=== PATIENT | female | born 2005 | race Two or more races ===

== ENCOUNTER 2024-07-18 18:00 | Emergency (ER) | payer MEDICAID, SELFPAY ==
[2024-07-18 18:07] VITALS: BP 133/75; PULSE 68; RESP 18; TEMP 36.6; O2SAT 98; BMI 28.3
--- NOTE | 2024-07-18 18:11 | ED.UPPEXIN ---
HPI - Extremity Injury (Upper) General Time Seen by Provider: 18:11 Date Seen: 07/18/24 Chief Complaint: Extremity Pain/Injury, Upper Stated Complaint: R middle finger injury Time Seen by Provider: 07/18/24 18:09 Source: patient Mode of arrival: ambulatory Limitations: no limitations Related Data Home Medications ?Medication ?Instructions ?Recorded ?Confirmed No Known Home Medications 07/18/24 07/18/24 Allergies Allergy/AdvReac Type Severity Reaction Status Date / Time liquid tylenol Allergy Intermediate Swelling Uncoded 07/18/24 18:05 of Lip/Tongue/Throat PFSH PFSH Social History Smoking Status: Never smoker Do you use any of these nicotine containing products: None How often do you have a drink containing alcohol: never How often do you have six or more drinks on one occasion: Never AUDIT-C Alcohol total score: 0 Non-prescribed substance use: denies use Exam Const: Vital Signs, click to edit/add: Vital Signs - 24 hr 07/18/24 18:07 Temperature 98 F Pulse Rate [Pulse Oximeter] 68 Respiratory Rate 18 Blood Pressure [Ri ght Upper Arm] 133/75 Pulse Oximetry 98 Oxygen Delivery Me thod Room Air Course Vital Signs Vital signs: Initial Vital Signs Temperature 98 F 07/18/24 18:07 Temperature Source Temporal Artery Scan 07/18/24 18:07 Pulse Rate 68 07/18/24 18:07 Respiratory Rate 18 07/18/24 18:07 Blood Pressure 133/75 07/18/24 18:07 Blood Pressure Mean 94 07/18/24 18:07 Pulse Oximetry 98 07/18/24 18:07 Oxygen Delivery Method Room Air 07/18/24 18:07 Vital Signs Temperature 98 F 07/18/24 18:07 Pulse Rate 68 07/18/24 18:07 Respiratory Rate 18 07/18/24 18:07 Blood Pressure 133/75 07/18/24 18:07 Pulse Oximetry 98 07/18/24 18:07 Oxygen Delivery Method Room Air 07/18/24 18:07 Temperature 98 F 07/18/24 18:07 Pulse Rate 68 07/18/24 18:07 Respiratory Rate 18 07/18/24 18:07 Blood Pressure 133/75 07/18/24 18:07 Pulse Oximetry 98 07/18/24 18:07 Oxygen Delivery Method Room Air 07/18/24 18:07 Discharge Plan Discharge Prescriptions: No Action No Known Home Medications
--- NOTE | 2024-07-18 18:12 | CRLHL7_ITS ---
For Patients: As a result of the Cures Act, medical imaging exams and procedure reports are released immediately into your electronic medical record. You may view this report before your referring provider. If you have questions, please contact your health care provider. INDICATION: Injury COMPARISON: None. TECHNIQUE: Three radiographic view(s) of the right 3rd finger. FINDINGS: No evident acute displaced fracture. No substantial degenerative change. IMPRESSION: Normal radiographic examination of the right 3rd finger. Dictated by Juaquin Romeo MD @ 07/18/2024 6:33:38 PM (Electronically Signed)
--- OUTSIDE RECORDS SUMMARY | 2024-07-18 18:35 | XMS_ITS | Clinical Summary ---
Author Organization [facility] Address [address] [place], [place] Care Team Providers Care Type Rolling Machine Operator Name Role Phone Unavailable Primary Care Provider Unavailabl e Allergies No known active allergies Medications No known medications Active Problems Problem Noted Date Diagnosed Date Retropharyngeal abscess 08/24/2022 Social History Tobacco Use Types Packs/Day Years Used Date Smoking Tobacco: Never Tobacco Cessation:Counseling Given: Not Answered Alcohol Use Standard Drinks/Week Comments Never 0 (1 standard drink = 0.6 oz pur e alcohol) Domestic Partner Violence Answer Date R ecorded Domestic Abuse Screening - Safe in home 04/24/2023 Domestic Abuse Screening - Safe in relationship Not on file 04/24/2023 Alcohol Use- Patient History Answer Franky e Recorded Smoking Tobacco Use Never Assessed 12/24/2023 Smokeless Tobacco Use Unknown 12/24/2023 Passive Exposure Not on file 12/24/2023 Comments Unknown Sex and Gender Information Value Date Recorded Sex Assigned at Not on file Legal Sex Female 11:26 PM EDT Gender Identity Not on file Sexual Orientation Not on file Last Filed Vital Signs Vital Sign Reading Time Taken Comments Blood Pressure 112/61 08/25/2022 8:00 AM EDT Pulse 62 08/25/2022 8:00 AM EDT Temperature 36.2 C (97.1 F) 08/25/2022 8:00 AM EDT Respiratory Rate 18 08/25/2022 8:00 AM EDT Oxygen Saturation 99% 08/25/2022 8:00 AM EDT Inhaled Oxygen Concentration - - Weight 71.3 kg (157 lb 3 oz) 08/23/2022 11:43 PM EDT Height - - Body Mass Index - - Plan of Treatment Health Maintenance Due Date Last Done Comments HIV Screening 2004 Hepatitis C Screening 2004 Annual Physical 2006 Influenza Vaccine 11/19/2023 01/02/2022, , 12/14/2019, Additional history exists Depression Screening Yearly 04/20/2024 DTAP,Tdap and Td Vaccines (7 - Td or Tdap) 11/22/2024 11/22/2014, 09/27/2008, 12/04/2005, Additional history exists HIB Vaccines Completed 09/08/2005, 12/20, 2004 Pneumococcal Vaccine: Peds (0-5Y) & At-Risk Patients (6- 49Y) Aged Out 09/08/2005, 03/10/2005, 01/07/2005, Additional history exists No longer eligible based on patient's age to complete this topic HPV Vaccines Completed 12/10/2015, 08/2014, 11/22/2014, Additional history exists Insurance Benefit Mobile [place] [id number] Advance Directives For more information, please contact: [phone] * Full Code (Latest Code Status on File) Date Activated Date Inactivated Comments 08/24/2022 10:05 AM 08/25/2022 11:37 AM
--- OUTSIDE RECORDS SUMMARY | 2024-07-18 18:35 | XMS_ITS | Clinical Summary ---
Author Organization [facility] Kimmy kamara Address [address] [place] [address] Phone Care Team Providers Care Voltage Regulator Assembler Name Role Phone Santhosh Eason MD Primary Care Provider [phone] Allergies No known active allergies Medications No known medications Active Problems Problem Noted Date Diagnosed Date Discoid lateral meniscus of right knee 8 Overview (04/24/2017): Added automatically from request for surgery [id number] Social History Tobacco Use Types Packs/Day Years Used Date Smoking Tobacco: Never Smokeless Tobacco: Never Comments No Sex and Gender Information Value Date Recorded Sex Assigned at Not on file Legal Sex Female 3:44 AM EST Gender Identity Not on file Sexual Orientation Not on file Last Filed Vital Signs Vital Sign Reading Time Taken Comments Blood Pressure 109/57 10/01/2020 12:03 PM EDT Pulse 65 10/01/2020 12:03 PM EDT Temperature 36.8 C (98.3 F) 10/01/2020 12:03 PM EDT Respiratory Rate 14 05/01/2017 6:28 PM EST Oxygen Saturation - - Inhaled Oxygen Concentration - - Weight 68 kg (149 lb 14.6 oz) 12:03 PM EDT Height 155.7 cm (5' 1.3) 10/01/2020 12 :03 PM EDT Body Mass Index 28.05 10/01/2020 12:03 PM EDT Body Mass Index Percentile 93.84% 10/01 12:03 PM EDT Growth Chart: CDC (Girls, 2- 20 Years) Plan of Treatment Health Maintenance Due Date Last Done Comments Lipid Panel Screening 2021 COVID-19 VACCINE (4 - 2023-2 5 season) 2023 06/13/2021, 09/21/2020, 08/30/2020 INFLUENZA VACCINE (SPECIALTY CARE) (#1) 2023 01/02/2022, 01/15/2021, 12/14/2019, Additional history exists DTAP/TDAP/TD VACCINES (SPECI ALTY CARE) (7 - Td or Tdap) 11/22/2024 11/22/2014, 09/27/2008, 12/04/2005, Additional history exists HEPATITIS B VACCINES (SPECIA LTY CARE) Completed 03/10/2005, 01/07/2005, 2004, Additional history exists HEPATITIS A VACCINES (SPECIA LTY CARE) Completed 09/16/2007, 09/11/2006 VARICELLA VACCINE (SPECIALTY CARE) Completed 2008, 09/08/2005 HPV VACCINES NEMOURS Completed 12/10/2015, 01/22/2015, 11/22/2014, Additional history exists MENINGOCOCCAL VACCINE (SPECI ALTY CARE) Completed 12/13/2020, 11/22/2014 Insurance [place] [id number] Care Teams Voltage Regulator Assembler Relationship Specialty Start Date End Date Santhosh Eason MD [facility] [address] [place] [address] PCP - General Primary Care Pediatrics 04/23/17
--- OUTSIDE RECORDS SUMMARY | 2024-07-18 18:35 | XMS_ITS | Clinical Summary ---
Author Organization [facility] Address [address] [place] [address] Care Team Providers Care Presser Hand Name Role Phone Marianne Acosta Primary Care Provider [phone] Allergies Active Allergy Reactions Criticality Noted Date Comments Acetaminophen 08/09/2021 Liquid childrens acetaminophen, reports tolerating pills. Medications ibuprofen (MOTRIN) 200 mg tablet Take 2 tablets (400 mg total) by mouth every 6 (six) hours as needed for mild pain (1-3) for up to 50 doses 50 tablet 08/09/2021 Active Social History Tobacco Use Types Packs/Day Years Used Date Smoking Tobacco: Never Smokeless Tobacco: Never Alcohol Use Standard Drinks/Week Comments Never 0 (1 standard drink = 0.6 oz pur e alcohol) Comments No Sex and Gender Information Value Date Recorded Sex Assigned at Female 08/10/2021 12:31 AM EDT Legal Sex Female 6:19 PM EDT Gender Identity Female 08/10/2021 12:31 AM EDT Sexual Orientation Not on file Last Filed Vital Signs Vital Sign Reading Time Taken Comments Blood Pressure 129/85 08/09/2021 11:30 PM EDT Pulse 89 08/09/2021 11:30 PM EDT Temperature 36.7 C (98 F) 08/09/2021 11:13 PM EDT Respiratory Rate 14 08/09/2021 11:30 PM EDT Oxygen Saturation 99% 08/09/2021 11:30 PM EDT Inhaled Oxygen Concentration - - Weight 70 kg (154 lb 5.2 oz) 08/09/2021 11:15 PM EDT Height 154.9 cm (5' 1) 08/09/2021 11:13 PM EDT Body Mass Index 29.16 08/09/2021 11:13 PM EDT Body Mass Index Percentile 94.54% 08/09/2021 11: 15 PM EDT Growth Chart: CDC (Girls, 2- 20 Years) Plan of Treatment Health Maintenance Due Date Last Done Comments HPV Vaccines (1 - 3-dose series) 09/04/2019 Hepatitis C Screening (HCV) 08/29/2020 COVID-19 Vaccine (2023- season) 2023 Influenza Vaccine (#1) 2024 Insurance PIP PERSONAL INJURY PROTECTION on file PIP PROGRESSIVE Care Teams Presser Hand Relationship Specialty Start Date End Date Marianne Acosta [address] [address] PCP - General Family Medicine 12/12/22
--- NOTE | 2024-07-18 18:52 | ED.GENADULT ---
HPI - General Adult General Date Seen: 07/18/24 Chief complaint: Extremity Pain/Injury, Upper Stated complaint: R middle finger injury Time Seen by Provider: 07/18/24 18:09 History of Present Illness HPI narrative: Patient is a 18-year-old young woman who fell up the stairs earlier today around lunch time. She bent her right 3rd finger back in the process and is bruised and swollen primarily over the PIP and proximal phalanx. No other injuries or complaints. No numbness or loss of function. Related Data Home Medications ?Medication ?Instructions ?Recorded ?Confirmed No Known Home Medications 07/18/24 07/18/24 Allergies Allergy/AdvReac Type Severity Reaction Status Date / Time liquid tylenol Allergy Intermediate Swelling Uncoded 07/18/24 18:05 of Lip/Tongue/Throat PFSH PFSH Social History Smoking Status: Never smoker Do you use any of these nicotine containing products: None How often do you have a drink containing alcohol: never How often do you have six or more drinks on one occasion: Never AUDIT-C Alcohol total score: 0 Non-prescribed substance use: denies use Exam Narrative: Exam Narrative: Vital signs reviewed In general, alert, well-appearing young woman. Extremities: Examination of the right hand shows bruising and swelling of the 3rd digit, some tenderness over the PIP joint primarily. She has full flexion extension at the D IP PIP and MCP joint of the 3rd finger. Distal CMS intact. Const: Vital Signs, click to edit/add: Vital Signs - 24 hr 07/18/24 18:07 Temperature 98 F Pulse Rate [Pulse Oximeter] 68 Respiratory Rate 18 Blood Pressure [Ri t Upper Arm] 133/75 Pulse Oximetry 98 Oxygen Delivery Me thod Room Air Course Course ED Course: X-rays of that 3rd finger by my review look normal, no evidence of fracture dislocation. Radiology read is reviewed as well and noted to be normal. We will place her in a splint for comfort, discussed that this can be removed when she starts to feel better which should occur over the next week to week and half. Not improving, be seen again. Ibuprofen or Tylenol as needed for pain. Vital Signs Vital signs: Initial Vital Signs Temperature 98 F 07/18/24 18:07 Temperature Source Temporal Artery Scan 07/18/24 18:07 Pulse Rate 68 07/18/24 18:07 Respiratory Rate 18 07/18/24 18:07 Blood Pressure 133/75 07/18/24 18:07 Blood Pressure Mean 94 07/18/24 18:07 Pulse Oximetry 98 07/18/24 18:07 Oxygen Delivery Method Room Air 07/18/24 18:07 Vital Signs Temperature 98 F 07/18/24 18:07 Pulse Rate 68 07/18/24 18:07 Respiratory Rate 18 07/18/24 18:07 Blood Pressure 133/75 07/18/24 18:07 Pulse Oximetry 98 07/18/24 18:07 Oxygen Delivery Method Room Air 07/18/24 18:07 Temperature 98 F 07/18/24 18:07 Pulse Rate 68 07/18/24 18:07 Respiratory Rate 18 07/18/24 18:07 Blood Pressure 133/75 07/18/24 18:07 Pulse Oximetry 98 07/18/24 18:07 Oxygen Delivery Method Room Air 07/18/24 18:07 Medical Decision Making Imaging Data Right 3rd finger x-ray: Attestation: I have reviewed the pertinent imaging results. Radiologist's impression: [place] [address] Diagnostic Imaging Report Patient: Bijal Olguin MR#: [id number] : 2005 Acct:[id number] Loc: ED Service Date: 07/18/[address]: Ordering Physician: Ana Gilbert M.D. Date of Service: 07/18/24 Procedure(s): XR 3rd finger RT Accession Number(s): [id number] cc: Ana Gilbert M.D.; Provider,Not a Local~ For Patients: As a result of the Cures Act, medical imaging exams and procedure reports are released immediately into your electronic medical record. You may view this report before your referring provider. If you have questions, please contact your health care provider. INDICATION: Injury COMPARISON: None. TECHNIQUE: Three radiographic view(s) of the right 3rd finger. FINDINGS: No evident acute displaced fracture. No substantial degenerative change. IMPRESSION: Normal radiographic examination of the right 3rd finger. Dictated by Juaquin Romeo MD @ 07/18/2024 6:33:38 PM Discharge Plan Discharge Clinical Impression: Injury of right middle finger Patient Disposition: Home, Self-Care Condition: Stable Instructions: Yvrose Finger (ED) Additional Instructions: Your x-rays today do not show any evidence of a broken bone. Here injuries probably to the ligaments in the finger instead. This usually heals on its own over the course of a week or 2. If you are not improving in that time you should be seen again. Otherwise, you can use the splint for comfort, with the fingers feeling better you can leave that off. It is fine to remove for bathing etcetera. Ibuprofen and/or Tylenol, ice may be helpful as well. Prescriptions: No Action No Known Home Medications Follow Up/Referrals: Provider,Not a Local [Primary Care Provider] - Stand Alone Forms: [employer] Info Instructions
== END 2024-07-18 18:59 | disposition home or self-care (01) ==
PROVIDERS: Emergency Provider Emergency Medicine
DX: S60.031A Contusion of right middle finger without damage to nail, initial encounter (principal); W10.2XXA Fall (on)(from) incline, initial encounter
CPT/HCPCS: 29130; 73140; 99283

== ENCOUNTER 2024-12-25 10:32 | Emergency (ER) | payer BC, SELFPAY ==
--- OUTSIDE RECORDS SUMMARY | 2024-12-25 10:34 | XMS_ITS | Encounter Summary ---
Author Organization [facility] Address [address] [place] [address] Care Team Providers Care Manager Land Name Role Phone Santhosh Eason Primary Care Provider [phone] Marianne Acosta Primary Care Provider [phone] Encounter Details Date Type Department Care Team (Late st Contact Info) Description 08/15/2021 Historical Encounter - OC [facility] Health Information Management [address] [facility] [place] [address] Generic, Provider One Content Social History Tobacco Use Types Packs/Day Years [...] AM EDT Sexual Orientation Not on file COVID-19 Exposure Response Date Recorded In the last 10 days, have yo u been in contact with someone who was confirmed or suspected to have Coronavirus/COVID-19? No / Unsure 08/09/2021 11:11 PM EDT documented as of this encounter Plan of Treatment Not on file documented as of this encounter Visit Diagnoses Not on filedocumented in this encounter Care Teams Manager Land Relationship Specialty Start Date End Date Santhosh Eason [id number] [facility] [address] [place], [place] PCP - General Pediatrics 08/09/21 12/11/22 Marianne Acosta [address] [place], [place] PCP - General Family Medicine 12/12/22 documented as of this encounter
--- OUTSIDE RECORDS SUMMARY | 2024-12-25 10:34 | XMS_ITS | Clinical Summary ---
Author Organization [facility] Address [address] [place] [address] Care Team Providers Care Oceanologist Name Role Phone Marianne Acosta Primary Care Provider [phone] Allergies Active Allergy Reactions Criticality Noted Date [...] Mass Index 29.16 08/09/2021 11:13 PM EDT Plan of Treatment Health Maintenance Due Date Last Done Comments COVID-19 Vaccine ( season) 2024 Insurance PIP PERSONAL INJURY PROTECTION on file PIP PROGRESSIVE Member Subscriber Plan / Payer (Ef fective 2021-Present) Name:Bijal Glover Relation to Subscriber:Self Name:Bijal Glover Payer ID:[id number] Group ID:Not on file Type:Not on file Address: [facility] [id number] [place] [id number] Care Teams Oceanologist Relationship Specialty Start Date End Date Marianne Acosta [address] [address] [place], [place] PCP - General Family Medicine 12/12/22
--- OUTSIDE RECORDS SUMMARY | 2024-12-25 10:34 | XMS_ITS | Encounter Summary ---
Author Organization [facility] Address [address] [facility] [place] [address] Care Team Providers Care Compressor Technician Name Role Phone Yumi Santhosh Primary Care Provider [phone] Marianne Acosta Primary Care Provider [phone] Encounter Details Date Type Department Care Team (Late st Contact Info) Description 09/18/2021 Historical Encounter - OC [facility] Health Information Management [address] [facility] [place] [id number] Generic, Provider One Content Social History Tobacco [...] AM EDT Sexual Orientation Not on file documented as of this encounter Plan of Treatment Not on file documented as of this encounter Visit Diagnoses Not on filedocumented in this encounter Care Teams Compressor Technician Relationship Specialty Start Date End Date Yumi Santhosh [address] [facility] [address] [place], [place] PCP - General Pediatrics 08/09/21 12/11/22 Marianne Acosta [address] [address] [place], [place] PCP - General Family Medicine 12/12/22 documented as of this encounter
--- OUTSIDE RECORDS SUMMARY | 2024-12-25 10:34 | XMS_ITS | Clinical Summary ---
Author Organization [facility] Kimmy kamara Address [address] [place] [address] Phone Care Team Providers Care Clinical Athletic Instructor Name Role Phone Santhosh Eason MD Primary Care Provider [phone] Allergies No known active allergies Medications No known medications Active Problems Problem Noted Date Diagnosed Date Discoid lateral meniscus of right knee 8 Overview (04/24/2017): Added automatically from request for surgery [id number] Social History Tobacco Use Types Packs/Day Years [...] Weight 68 kg (149 lb 14.6 oz) 10/01/2020 12:03 P M EDT Height 155.7 cm (5' 1.3) 10/01/2020 12:03 PM ED T Body Mass Index 28.05 10/01/2020 12:03 PM EDT Plan of Treatment Health Maintenance Due Date Last Done Comments MEN B VACCINE (1 of 2 - Standard) 2020 Lipid Panel Primary Screenin g 17-20 yo 2021 COVID-19 VACCINE (2024-2 6 season) 2024 06/13/2021, 09/21/2020, 08/30/2020 INFLUENZA VACCINE (SPECIALTY CARE) (#1) 2024 01/02/2022, 01/15/2021, 12/14/2019, Additional history exists HEPATITIS B VACCINES (SPECIA LTY CARE) Completed 03/10/2005, 01/07/2005, 2004, Additional history exists HEPATITIS A VACCINES (SPECIA LTY CARE) Completed 09/16/2007, 09/11/2006 VARICELLA VACCINE (SPECIALTY CARE) Completed 2008, 09/08/2005 HPV VACCINES NEMOURS Completed 12/10/2015, 01/22/2015, 11/22/2014, Additional history exists MENINGOCOCCAL VACCINE (SPECI ALTY CARE) Completed 12/13/2020, 11/22/2014 Insurance [place] M[place] [id number] Care Teams Clinical Athletic Instructor Relationship Specialty Start Date End Date Santhosh Eason MD [facility] [address] [place] [address] [address] [place] [address] PCP - General Primary Care Pediatrics 04/23/17
--- OUTSIDE RECORDS SUMMARY | 2024-12-25 10:34 | XMS_ITS | Encounter Summary ---
Author Organization [facility] Address [address] [facility] [place] [address] Care Team Providers Care Federal District Clerk Name Role Phone Yumi Santhosh Primary Care Provider [phone] Marianne Acosta Primary Care Provider [phone] Encounter Details Date Type Department Care Team (Late st Contact Info) Description 09/10/2021 Historical Encounter - OC [facility] Health Information Management [address] [facility] [place] [id number] Generic, Provider One Content Social History Tobacco [...] on filedocumented in this encounter Care Teams Federal District Clerk Relationship Specialty Start Date End Date Yumi Santhosh [address] [facility] [address] [place], [place] PCP - General Pediatrics 08/09/21 12/11/22 Marianne Acosta [address] [address] [place], [place] PCP - General Family Medicine 12/12/22 documented as of this encounter
--- OUTSIDE RECORDS SUMMARY | 2024-12-25 10:34 | XMS_ITS | Clinical Summary ---
Author Organization [facility] Address [address] [place], [place] Care Team Providers Care Metal Casket Maker Name Role Phone Unavailable Primary Care Provider [...] Domestic Abuse Screening - Safe in home Unrecogn ized value 04/24/2023 Domestic Abuse Screening - Safe in relationship Not on file 04/24/2023 Alcohol Use- Patient History Answer Franyk e Recorded Smoking Tobacco Use Never Assessed [...] Hepatitis C Screening 2004 Annual Physical 2006 Depression Screening Yearly 04/20/2024 Influenza Vaccine 11/18/2024 01/02/2022, , 12/14/2019, Additional history exists DTAP,Tdap and Td Vaccines (7 - Td or Tdap) 11/22/2024 11/22/2014, 09/27/2008, 12/04/2005, Additional history exists Hepatitis B Vaccines Completed 03/10/2005, 01/07/2005, 2004, Additional history exists HIB Vaccines Completed 09/08/2005, 12/20, 2004 Pneumococcal Vaccine: Peds (0-5Y) & At-Risk Patients (6- 49Y) Aged Out 09/08/2005, 03/10/2005, 01/07/2005, Additional history exists No longer eligible based on patient's age to complete this topic Hepatitis A Vaccines Completed 09/16/2007, 09/12/19 07 IPV Vaccines Completed 09/27/2008, 02/19, 01/07/2005, Additional history exists MMR Vaccines Completed 09/27/2008, 09/08/2005 Varicella Vaccines Completed 09/27/2008, 09/08/2005 HPV Vaccines Completed 12/10/2015, 08/2014, 11/22/2014, Additional history exists Meningococcal Vaccine Completed 12/13/2020, 015 Rotavirus Vaccines Aged Out No longer eligible based on patient's age to complete this topic Insurance [facility] [place] [id number] Advance Directives For more information, please contact: [phone] Documents on File Type Date Recorded Patient Woolen Tester Expl anation Power of Electric Brain Wave Equipment Mechanic 08/24/2022 3:51 AM Advance Directives 08/24/2022 3:51 AM * Full Code (Latest Code Status on File) Date Activated Date Inactivated Comments 08/24/2022 10:05 AM 08/25/2022 11:37 AM
[2024-12-25 10:51] VITALS: BP 122/75; PULSE 59; RESP 18; TEMP 36.7; O2SAT 98; BMI 31.0
--- NOTE | 2024-12-25 11:06 | ED.GENADULT ---
HPI - General Adult General Chief complaint: Urogenital Problems, Female Stated complaint: UTI symptoms Time Seen by Provider: 12/25/24 10:43 History of Present Illness HPI narrative: Patient is a 19-year-old female who has had some dysuria and frequency last few days. Has not had a history of UTIs. She has noticed no gross hematuria. She has had no flank pain or fever rigors. Related Data Home Medications ?Medication ?Instructions ?Recorded ?Confirmed No Known Home Medications 07/18/24 12/25/24 Allergies Allergy/AdvReac Type Severity Reaction Status Date / Time liquid tylenol Allergy Intermediate Swelling Uncoded 07/18/24 18:05 of Lip/Tongue/Throat Review of Systems Status of ROS: Reports: 6 or more systems reviewed and unremarkable except as noted in History and below PFSH [facility] Social History Smoking Status: Never smoker Do you use any of these nicotine containing products: None How often do you have a drink containing alcohol: never How often do you have six or more drinks on one occasion: Never AUDIT-C Alcohol total score: 0 Non-prescribed substance use: denies use Exam Narrative: Exam Narrative: Objective: Afebrile Negative CVA tenderness mild suprapubic discomfort Alert orient x3 no distress Const: Vital Signs, click to edit/add: Vital Signs - 24 hr 12/25/24 10:51 Temperature 98.1 F Pulse Rate [Pulse Oximeter] 59 L Respiratory Rate 18 Blood Pressure [Ri ght Upper Arm] 122/75 Pulse Oximetry 98 Oxygen Delivery Me thod Room Air Course Vital Signs Vital signs: Initial Vital Signs Temperature 98.1 F 12/25/24 10:51 Temperature Source Temporal Artery Scan 12/25/24 10:51 Pulse Rate 59 L 12/25/24 10:51 Respiratory Rate 18 12/25/24 10:51 Blood Pressure 122/75 12/25/24 10:51 Blood Pressure Mean 90 12/25/24 10:51 Pulse Oximetry 98 12/25/24 10:51 Oxygen Delivery Method Room Air 12/25/24 10:51 Vital Signs Temperature 98.1 F 12/25/24 10:51 Pulse Rate 59 L 12/25/24 10:51 Respiratory Rate 18 12/25/24 10:51 Blood Pressure 122/75 12/25/24 10:51 Pulse Oximetry 98 12/25/24 10:51 Oxygen Delivery Method Room Air 12/25/24 10:51 Temperature 98.1 F 12/25/24 10:51 Pulse Rate 59 L 12/25/24 10:51 Respiratory Rate 18 12/25/24 10:51 Blood Pressure 122/75 12/25/24 10:51 Pulse Oximetry 98 12/25/24 10:51 Oxygen Delivery Method Room Air 12/25/24 10:51 Medical Decision Making MDM Narrative Medical decision making narrative: 19-year-old female with dysuria and frequency consistent with urinary tract infection. Will check a UA UC, will cover with Keflex 500 t.i.d. x7 days. Push fluids, light activity for couple days and may resume normal activity. Return if problems or concerns. Lab Data Labs: Lab Results 12/25/24 Range/Units 10:34 Urine Color Yellow (Yellow) Urine Appearance Clear (Clear) Urine pH 7.0 (5.0-8.5) Ur Specific [place] 1.015 (1.000-1.030) Urine Protein Negative (Negative) Urine Glucose (UA) Negative (Negative) Urine Ketones Negative (Negative) Urine Blood 2+ A (Negative) Urine Nitrite Negative (Negative) Urine Bilirubin Negative (Negative) Urine Urobilinogen 0.2 (0.2-1.0) Ur Leukocyte Esterase 1+ A (Negative) Urine RBC 10-25 A (0-2) Urine WBC 2-5 (0-5) Ur Squamous Epith Cells Few (None-Few) Urine Bacteria Few A (None) Discharge Plan Discharge Clinical Impression: Urinary tract infection Patient Disposition: Home w/ Parent or Adult Condition: Stable Additional Instructions: Light activity for a couple of days, lots of fluids to drink, antibiotic as prescribed, return if problems or concerns. Activity Level: Light activity Discharge Diet: Regular Prescriptions: No Action No Known Home Medications Follow Up/Referrals: Provider,Not a Local [Primary Care Provider, Family Practice] Stand Alone Forms: [employer] Info Instructions
[2024-12-25 11:15] LABS: Appearance Urine Clear (Clear)
== END 2024-12-25 11:18 | disposition home or self-care (01) ==
LOC: ED 11:09
PROVIDERS: Emergency Provider Family Medicine
DX: N39.0 Urinary tract infection, site not specified (principal)
CPT/HCPCS: 81001; 87086; 99283